=== PATIENT | male | born 1960 | race African-American/Black ===

== ENCOUNTER 2018-10-28 07:59 | Emergency (ER) | payer BC ==
[2018-10-28 08:12] VITALS: BP 154/94; PULSE 62; TEMP 97.9; BMI 25.1
[2018-10-28] MEDS ORDERED: FLUORESCEIN NA 1 EA STRIP OS ONE (08:16)
[2018-10-28] MEDS ORDERED: TETRACAINE 0.5% HCL 0.6ML DROPPER.BOTTLE OS ONE (08:16)
--- NOTE | 2018-10-28 08:35 | PDOC ---
Attending Attestation - Resident Resident Name: Coy Wong - ED Attending Attestation I have performed the following: I have examined & evaluated the patient, The case was reviewed & discussed with the resident, I agree w/resident's findings & plan, Exceptions are as noted - HPI HPI: 10/28/18 08:32 57 M with h/o HTN presenting to ED with pain and swelling above L eye after falling 2 days ago. Pt states that he tripped and hit his head against the corner of a chair. Pt denies LOC. Initially had pain above his L eye where he was injured, but since then the pain has subsided. Now pt only complains of swelling and bruising above L eye. Denies any VÁZQUEZ/N/V. Denies neck pain. Denies blurry vision. Denies double vision. Pt takes aspirin 81mg occasionally but not daily. Denies any other AC. - Physicial Exam PE: 10/28/18 08:34 GENERAL: Awake, alert, and fully oriented, in no acute distress. HEAD: + hematoma to lateral L eyebrow, No other signs of trauma EYES: PERRLA, EOMI, sclera anicteric, conjunctiva clear ENT: Auricles normal inspection, hearing grossly normal, nares patent, oropharynx clear without exudates. Moist mucosa NECK: Nontender, no stepoffs, Normal ROM, supple, no lymphadenopathy, JVD, or masses LUNGS: Breath sounds equal, clear to auscultation bilaterally. No wheezes, and no crackles HEART: Regular rate and rhythm, normal S1 and S2, no murmurs, rubs or gallops ABDOMEN: Soft, nontender, normoactive bowel sounds. No guarding, no rebound. No masses EXTREMITIES: Normal range of motion, no edema. No clubbing or cyanosis. No cords, erythema, or tenderness NEUROLOGICAL: Cranial nerves II through XII intact. 5/5 strength and sensation in all extremities, Normal speech, normal gait, normal cerebellar function SKIN: Warm, Dry, normal turgor, no rashes or lesions noted. - Medical Decision Making 10/28/18 08:34 57 M with small hematoma to L eyebrow after falling 48 hours ago. Pt with no other signs of trauma. No VÁZQUEZ/N/V to suggest serious intracranial injury. No indication for CT by monegasque head CT rules. - Pt counseled on concerning symptoms Pt is well appearing, with normal vitals. Clinically stable for DC at this time. I discussed the physical exam findings, ancillary test results and final diagnoses with the patient. I answered all of the patient's questions. The patient was satisfied with the care received and felt comfortable with the discharge plan and treatment plan. The patient agrees to follow up with the primary care physician within 24-72 hours.
--- NOTE | 2018-10-28 08:39 | PDOC ---
History of Present Illness - General Chief Complaint: Eye Problem Stated Complaint: L EYE INJURY Time Seen by Provider: 10/28/18 08:15 History Source: Patient, Old Records Exam Limitations: No Limitations - History of Present Illness Initial Comments: HPI: 57 y/o male presenting to [facility] ER complaining of pain and swelling to upper outer portion of left orbit. Symptoms started on Sunday when the pt fell into a chair at home. Denies LOC, nausea/vomiting, or amnesia surrounding the event. Denies blurry vision or pain with eye movements. Has tried Advil and cold compress with some relief. No concerning change this morning; just wanted to have it checked. PCP: Hx: - Employee of [employer] Medical Hx: - HTN managed with hydrochlorothiazide Past History - Past Medical History Allergies/Adverse Reactions: Allergies Allergy/AdvReac Type Severity Reaction Status Date / Time No Known Drug Allergies Allergy Verified 10/28/18 08:10 Home Medications: Ambulatory Orders Hydrochlorothiazide [Hctz -] 25 mg PO DAILY 04/24/15 Anemia: No Asthma: No Cancer: No Cardiac Disorders: No CVA: No COPD: No CHF: No Dementia: No Diabetes: No GI Disorders: No Disorders: No HTN: Yes Hypercholesterolemia: No Liver Disease: No Seizures: No Thyroid Disease: No - Surgical History Abdominal Surgery: No Appendectomy: No Cardiac Surgery: No Cholecystectomy: No Lung Surgery: No Neurologic Surgery: No Orthopedic Surgery: Yes (R LEG SURGERY AT AGE 16) - Suicide/Smoking/Psychosocial Hx Smoking History: Never smoked Have you smoked in the past 12 months: No If you are a former smoker, when did you quit?: 2007 Cigars Per Day: 1 Information on smoking cessation initiated: No Hx Alcohol Use: No Drug/Substance Use Hx: No Substance Use Type: Alcohol Hx Substance Use Treatment: Yes (RECOVERING ALCOHOLIC) Review of Systems - Review of Systems Able to Perform ROS?: Yes Comments:: In addition to that documented in the HPI above, the additional ROS was obtained : Constitutional: Denies fevers or chills Head: Per HPI ENMT: Denies sore throat CV: Denies chest pain Resp: Denies SOB GI: Denies vomiting or diarrhea : Denies painful urination MSK: Denies recent trauma Skin: Denies new rashes Neuro: Denies new numbness or tingling or weakness Endocrine: Denies polyuria Heme: Denies bleeding or bruising *Physical Exam - Vital Signs Last Vital Signs Temp Pulse Resp BP Pulse Ox 97.9 F 62 18 154/94 100 10/28/18 08:11 10/28/18 08:11 10/28/18 08:11 10/28/18 08:11 10/28/18 08:11 - Physical Exam Comments: Constitutional: Well-developed, well-nourished adult male in no acute distress or obvious discomfort. Found sitting on edge of hospital bed. Alert and oriented x4. Answered all questions appropriately and completely. Speech was non -labored, non-pressured. Head: Normocephalic. Soft tissue swelling with trace ecchymosis to upper, outer portion of left orbit. Mildly tender to palpation. Eyes: Pupils 3mm and PERRL bilaterally. EOMI; no associated pain. Sclerae white. Conjunctiva moist and not injected. Left Eye: 20/32. Right Eye: 20/25 Ears: Hearing grossly intact. Nose: No nasal discharge. Neck: Supple, trachea is midline. Cardiovascular / Chest: Regular rate and regular rhythm. No murmur, rubs, clicks, or gallops. Peripheral pulses: radial pulses full. Respiratory: Breathing unlabored. Equal chest rise and fall. Clear to auscultation bilaterally. No stridor, no wheezing, no rhonchi. Neuro: Alert and oriented. Moving all four extremities spontaneously. Skin: Warm, dry, and intact. Psych: Affect: appropriate. Mood: normal. Moderate Sedation - Procedure Monitoring Vital Signs: Procedure Monitoring Vital Signs Temperature 97.9 F 10/28/18 08:11 Pulse Rate 62 10/28/18 08:11 Respiratory Rate 18 10/28/18 08:11 Blood Pressure 154/94 10/28/18 08:11 O2 Sat by Pulse Oximetry (%) 100 10/28/18 08:11 Medical Decision Making - Medical Decision Making *Reviewed vital signs, nursing notes, and prior visit documentation (if available). 57 y/o male with small amount of swelling and ecchymosis to left orbit after falling at home two days ago. No visual changes or pain. No concerning changes this morning. Physical exam as described above. Benign. Will encourage continued NSAID/Acetaminophen use PRN. Pt to f/u with PCP as needed. *DC/Admit/Observation/Transfer Diagnosis at time of Disposition: Localized swelling, mass, and lump of head, Contusion of left eyelid and periocular area, initial encounter - Discharge Dispostion Disposition: HOME Condition at time of disposition: Good Decision to Admit order: No - Referrals - Patient Instructions Printed Discharge Instructions: DI for Eye Contusion Additional Instructions: You were seen today for swelling and pain to your left eyebrow. This is likely because of a small soft tissue injury. It is not likely to be life threatening and should go away within the next few days. Continue to use over the counter Advil or Tylenol as needed for the pain. Take as directed on the package insert. Do not exceed the recommended dosage. Follow up with your primary care doctor within the next week or as needed. You will need to call to make an appointment. Go to the nearest emergency department if your condition worsens or you feel like you need additional emergency evaluation. Print Language: THAI - Post Discharge Activity Forms/Work/School Notes: Back to Work
== END 2018-10-28 08:54 | disposition home or self-care (01) ==
LOC: JER 07:59
DX: S00.12XA Contusion of left eyelid and periocular area, initial encounter (principal); S05.12XA Contusion of eyeball and orbital tissues, left eye, initial encounter; W01.190A Fall on same level from slipping, tripping and stumbling with subsequent striking against furniture, initial encounter; Y93.89 Activity, other specified; Y92.038 Other place in apartment as the place of occurrence of the external cause; Y99.8 Other external cause status
CPT/HCPCS: 99281-25

== ENCOUNTER 2020-08-02 09:47 | Inpatient (IN) | payer BC ==
[2020-08-02 09:53] VITALS: BMI 25.8
[2020-08-02] MEDS ORDERED: SODIUM CHLORIDE 1,000 ML IV SCH (10:00)
[2020-08-02 10:40] LABS: BASO % 0.4 % (0-2.0); EOS % 0.7 % (0-4.5); HEMATOCRIT 40.6 % (35.4-49); LYMPH % 20.4 % (8-40); MCH 31.4 pg (25.7-33.7); MCHC 34.6 g/dl (32.0-35.9); MEAN CELL VOLUME 90.8 fl (80-96); MEAN PLT VOLUME 8.3 fl (7.5-11.1); MONO % 8.7 % (3.8-10.2); NEUT % 69.8 % (42.8-82.8); PLATELET COUNT 296 K/MM3 (134-434); RBC 4.47 M/mm3 (4.00-5.60); RDW 13.3 % (11.9-15.9); WHITE BLOOD COUNT 9.9 K/mm3 (4.0-10.0)
[2020-08-02] MEDS ORDERED: ACETAMINOPHEN 325 MG TABLET (FP) PO ONE (10:44)
[2020-08-02 10:50] LABS: INR 1.34 (0.83-1.09); PROTHROMBIN TIME (PATIENT) 16.4 SEC (9.7-13.0)
[2020-08-02 10:52] LABS: ACTIVATED PTT 33.7 SECONDS (25.2-36.5)
[2020-08-02 10:54] LABS: POTASSIUM 3.5 mmol/L (3.5-5.1)
[2020-08-02] MEDS ORDERED: ACETAMINOPHEN 325 MG TABLET (FP) ONE (10:56)
[2020-08-02 10:58] LABS: ALBUMIN 4.2 g/dl (3.4-5.0); BLOOD UREA NITROGEN 17.3 mg/dL (7-18); CALCIUM 9.9 mg/dL (8.5-10.1)
[2020-08-02 11:01] LABS: CHOLESTEROL 170 mg/dL (50-200); CREATININE 1.1 mg/dL (0.55-1.3); TRIGLYCERIDES 54 mg/dL (0-150)
[2020-08-02 11:02] LABS: LDL CHOLESTEROL (ONLY SJRH) 97 mg/dL (5-100)
[2020-08-02 11:03] LABS: BILIRUBIN,TOTAL 0.7 mg/dL (0.2-1); TOT PROT 8.2 g/dl (6.4-8.2)
[2020-08-02 11:04] LABS: HDL CHOLESTEROL 57 mg/dL (40-60)
[2020-08-02] MEDS ORDERED: ATORVASTATIN CA 80 MG TABLET (FP) PO ONE (11:35)
[2020-08-02] MEDS ORDERED: ASPIRIN 325 MG TABLET PO ONE (11:35)
[2020-08-02] MEDS ORDERED: ONDANSETRON 4 MG/2 ML VIAL IVPUSH ONE (11:41)
[2020-08-02] MEDS ORDERED: ASPIRIN 325 MG ENTERIC COATED TABLET (FP) ONE (11:47)
[2020-08-02] MEDS ORDERED: ATORVASTATIN CA 80 MG TABLET (FP) ONE (11:47)
[2020-08-02] MEDS ORDERED: ONDANSETRON 4 MG/2 ML VIAL ONE ×2 (11:47→22:44)
[2020-08-02 12:08] LABS: URINE APPEARANCE CLEAR; URINE BILIRUBIN NEGATIVE (NEGATIVE); URINE COLOR YELLOW; URINE GLUCOSE (UA) NEGATIVE (NEGATIVE); URINE KETONE NEGATIVE (NEGATIVE); URINE LEUK ESTERASE NEGATIVE (NEGATIVE); URINE NITRITE NEGATIVE (NEGATIVE); URINE PROTEIN NEGATIVE (NEGATIVE); URINE UROBILINOGEN 0.2 mg/dL (0.2-1.0)
[2020-08-02] MEDS ORDERED: amLODIPine BESYLATE 10 MG TABLET (FP) PO SCH (14:45)
[2020-08-02] MEDS ORDERED: HYDROCHLOROTHIAZIDE 25 MG TABLET (FP) PO SCH (14:45)
[2020-08-02] MEDS ORDERED: LISINOPRIL 5 MG TABLET ONE (15:16)
[2020-08-02] MEDS: LISINOPRIL 5 MG TABLET PO SCH (15:20)
[2020-08-02] MEDS ORDERED: DONEPEZIL HCL 5 MG TABLET (FP) PO SCH (22:00)
[2020-08-02] MEDS ORDERED: ONDANSETRON 4 MG/2 ML VIAL IVPB ONE (22:41)
[2020-08-02] MEDS ORDERED: ONDANSETRON 4 MG/2 ML VIAL IVPUSH PRN (23:59)
[2020-08-03] MEDS ORDERED: DONEPEZIL HCL 5 MG TABLET (FP) PO SCH ×2 (03:32→03:45)
[2020-08-03] MEDS ORDERED: DONEPEZIL HCL 5 MG TABLET (FP) PO ONE (03:32)
[2020-08-03 07:06] LABS: INR 1.51 (0.83-1.09); PROTHROMBIN TIME (PATIENT) 18.3 SEC (9.7-13.0)
[2020-08-03 07:07] LABS: BASO % 0.3 % (0-2.0); EOS % 0.6 % (0-4.5); HEMATOCRIT 37.6 % (35.4-49); HEMOGLOBIN 12.8 GM/dL (11.7-16.9); LYMPH % 20.5 % (8-40); MCH 30.8 pg (25.7-33.7); MCHC 34.2 g/dl (32.0-35.9); MEAN CELL VOLUME 90.2 fl (80-96); MEAN PLT VOLUME 8.5 fl (7.5-11.1); MONO % 10.1 % (3.8-10.2); NEUT % 68.5 % (42.8-82.8); PLATELET COUNT 277 K/MM3 (134-434); RBC 4.16 M/mm3 (4.00-5.60); RDW 13.3 % (11.9-15.9); WHITE BLOOD COUNT 12.2 K/mm3 (4.0-10.0)
[2020-08-03 07:23] LABS: POTASSIUM 3.2 mmol/L (3.5-5.1)
[2020-08-03 07:39] LABS: MAGNESIUM 2.1 mg/dL (1.8-2.4)
[2020-08-03 07:42] LABS: TOT PROT 7.3 g/dl (6.4-8.2)
[2020-08-03 07:43] LABS: CALCIUM 9.4 mg/dL (8.5-10.1)
[2020-08-03 07:44] LABS: ALBUMIN 3.6 g/dl (3.4-5.0); BLOOD UREA NITROGEN 12.9 mg/dL (7-18)
[2020-08-03 07:46] LABS: BILIRUBIN,TOTAL 0.7 mg/dL (0.2-1)
[2020-08-03 07:48] LABS: CREATININE 0.9 mg/dL (0.55-1.3)
[2020-08-03] MEDS ORDERED: POTASSIUM CHLORIDE TABS 20 MEQ TABLET.ER (FP) PO ONE (07:52)
[2020-08-03] MEDS ORDERED: LORazepam 2 MG/ML SDV VIAL IVPUSH PRN ×2 (09:00→10:52)
[2020-08-03] MEDS: ASPIRIN COATED 81 MG TABLET.EC PO SCH (09:33)
[2020-08-03] MEDS: LISINOPRIL 5 MG TABLET PO SCH (09:33)
[2020-08-03] MEDS: amLODIPine BESYLATE 10 MG TABLET (FP) PO SCH (09:33)
[2020-08-03] MEDS: PANTOPRAZOLE 40 MG TABLET PO SCH (09:33)
[2020-08-03] MEDS ORDERED: HYDROCHLOROTHIAZIDE 25 MG TABLET (FP) PO SCH (10:00)
[2020-08-03] MEDS: KCL 10 MEQ IVPB 10 MEQ/100 ML INFUS.BAG IVPB SCH (10:44)
[2020-08-03] MEDS: DONEPEZIL HCL 10 MG TABLET (FP) PO SCH ×2 (20:44→21:04)
[2020-08-03] MEDS: HEPARIN NA (PORCINE) 5,000 UNITS/ML 1ML VIAL SQ SCH ×2 (20:44→21:04)
[2020-08-03] MEDS: ATORVASTATIN CA 80 MG TABLET (FP) PO SCH ×2 (20:44→21:05)
[2020-08-04] MEDS: HEPARIN NA (PORCINE) 5,000 UNITS/ML 1ML VIAL SQ SCH (07:01)
[2020-08-04 07:09] LABS: HEMATOCRIT 38.7 % (35.4-49); HEMOGLOBIN 13.3 GM/dL (11.7-16.9); MCH 31.5 pg (25.7-33.7); MCHC 34.4 g/dl (32.0-35.9); MEAN CELL VOLUME 91.5 fl (80-96); MEAN PLT VOLUME 8.2 fl (7.5-11.1); PLATELET COUNT 273 K/MM3 (134-434); RBC 4.23 M/mm3 (4.00-5.60); RDW 13.4 % (11.9-15.9); WHITE BLOOD COUNT 9.7 K/mm3 (4.0-10.0)
[2020-08-04 07:20] LABS: POTASSIUM 3.7 mmol/L (3.5-5.1)
[2020-08-04 07:26] LABS: ALBUMIN 3.6 g/dl (3.4-5.0); BLOOD UREA NITROGEN 15.9 mg/dL (7-18); CALCIUM 9.3 mg/dL (8.5-10.1)
[2020-08-04 07:29] LABS: CREATININE 1.1 mg/dL (0.55-1.3)
[2020-08-04 07:31] LABS: BILIRUBIN,TOTAL 0.8 mg/dL (0.2-1); TOT PROT 7.1 g/dl (6.4-8.2)
[2020-08-04] MEDS: LISINOPRIL 5 MG TABLET PO SCH (10:00)
[2020-08-04] MEDS: ASPIRIN COATED 81 MG TABLET.EC PO SCH (10:01)
[2020-08-04] MEDS: PANTOPRAZOLE 40 MG TABLET PO SCH (10:01)
[2020-08-04] MEDS: amLODIPine BESYLATE 10 MG TABLET (FP) PO SCH (10:01)
[2020-08-04 11:40] VITALS: BP 129/72; PULSE 70; TEMP 97.8
== END 2020-08-04 12:27 | disposition home or self-care (01) | DRG 305 ==
LOC: JER 09:47 → JERBED 13:35 → J4W 23:51
PROVIDERS: ATTEND Internal Medicine
DX: I16.0 Hypertensive urgency (principal); E78.5 Hyperlipidemia, unspecified; R29.810 Facial weakness; G31.84 Mild cognitive impairment of uncertain or unknown etiology
CPT/HCPCS: 36415; 70450-TC; 70551-TC; 80053; 80061; 81003; 82550; 82553; 82607; 82746; 83036; 83721; 83735; 84100; 84425; 84484; 85025; 85027; 85610; 85730; 86780; 86850; 86900; 86901; 93005; 93010; 93880-TC; 99285-25; C9803; J1644; U0003

== ENCOUNTER 2021-06-13 00:26 | Observation (INO) | payer BC ==
[2021-06-13] MEDS ORDERED: ACETAMINOPHEN 325 MG TABLET (FP) PO ONE (00:58)
[2021-06-13] MEDS ORDERED: SODIUM CHLORIDE 0.9% 500 ML INFUS.BAG IV ONE (00:59)
[2021-06-13] MEDS ORDERED: ACETAMINOPHEN 325 MG TABLET (FP) ONE (01:37)
[2021-06-13 01:43] LABS: BASO % 1.1 % (0-2.0); HEMOGLOBIN 12.9 GM/dL (11.7-16.9); LYMPH % 20.9 % (8-40); MEAN CELL VOLUME 91.5 fl (80-96); MEAN PLT VOLUME 8.3 fl (7.5-11.1); MONO % 10.2 % (3.8-10.2); NEUT % 64.8 % (42.8-82.8); PLATELET COUNT 257 10^3/uL (134-434); RBC 4.04 M/mm3 (4.00-5.60); RDW 13.5 % (11.9-15.9); WHITE BLOOD COUNT 10.2 K/mm3 (4.0-10.0)
[2021-06-13 02:01] LABS: ALBUMIN 3.8 g/dl (3.4-5.0); BLOOD UREA NITROGEN 15.6 mg/dL (7-18); CALCIUM 9.1 mg/dL (8.5-10.1)
[2021-06-13 02:06] LABS: BILIRUBIN,TOTAL 0.5 mg/dL (0.2-1); TOT PROT 7.6 g/dl (6.4-8.2)
[2021-06-13] MEDS ORDERED: ASPIRIN 81 MG CHEWABLE TABLETS PO ONE (02:20)
[2021-06-13] MEDS ORDERED: ASPIRIN 81 MG CHEWABLE TABLETS ONE (03:06)
[2021-06-13] MEDS ORDERED: CLOPIDOGREL BISULFATE 300 MG TABLET PO ONE (04:12)
[2021-06-13] MEDS ORDERED: ATORVASTATIN CA 40 MG TABLET (FP) PO SCH ×2 (04:45→22:00)
[2021-06-13 05:13] LABS: CALCIUM 8.7 mg/dL (8.5-10.1)
[2021-06-13 05:14] LABS: BLOOD UREA NITROGEN 12.9 mg/dL (7-18); MAGNESIUM 2.2 mg/dL (1.8-2.4)
[2021-06-13 05:17] LABS: CREATININE 0.9 mg/dL (0.55-1.3)
[2021-06-13] MEDS ORDERED: amLODIPine BESYLATE 5 MG TABLET (FP) ONE (06:29)
[2021-06-13] MEDS ORDERED: CLOPIDOGREL BISULFATE 300 MG TABLET ONE (06:30)
[2021-06-13] MEDS ORDERED: ATORVASTATIN CA 40 MG TABLET (FP) ONE (06:30)
[2021-06-13] MEDS: amLODIPine BESYLATE 10 MG TABLET (FP) PO SCH ×2 (06:41→21:31)
[2021-06-13 08:18] LABS: HEMATOCRIT 39.5 % (35.4-49); HEMOGLOBIN 13.5 GM/dL (11.7-16.9); MCH 31.8 pg (25.7-33.7); MCHC 34.3 g/dl (32.0-35.9); MEAN CELL VOLUME 92.8 fl (80-96); MEAN PLT VOLUME 8.3 fl (7.5-11.1); PLATELET COUNT 265 10^3/uL (134-434); RBC 4.26 M/mm3 (4.00-5.60); RDW 13.5 % (11.9-15.9); WHITE BLOOD COUNT 8.8 K/mm3 (4.0-10.0)
[2021-06-13 08:33] LABS: CALCIUM 9.6 mg/dL (8.5-10.1)
[2021-06-13 08:34] LABS: ALBUMIN 3.8 g/dl (3.4-5.0); BLOOD UREA NITROGEN 11.9 mg/dL (7-18)
[2021-06-13] MEDS ORDERED: METOPROLOL TARTRATE 50 MG TABLET (FP) ONE (08:34)
[2021-06-13] MEDS ORDERED: ENOXAPARIN NA (PORCINE) 100 MG/1 ML DISP.SYRIN SQ ONE (08:35)
[2021-06-13] MEDS ORDERED: LISINOPRIL 5 MG TABLET ONE (08:35)
[2021-06-13 08:37] LABS: PHOSPHOROUS 3.4 mg/dL (2.5-4.9)
[2021-06-13 08:39] LABS: BILIRUBIN,TOTAL 0.8 mg/dL (0.2-1); CHOLESTEROL 106 mg/dL (50-200); TOT PROT 7.9 g/dl (6.4-8.2); TRIGLYCERIDES 54 mg/dL (0-150)
[2021-06-13 08:40] LABS: LDL CHOLESTEROL (ONLY SJRH) 43 mg/dL (5-100)
[2021-06-13 08:42] LABS: HDL CHOLESTEROL 58 mg/dL (40-60)
[2021-06-13 08:48] LABS: MAGNESIUM 2.3 mg/dL (1.8-2.4)
[2021-06-13] MEDS: METOPROLOL TARTRATE 50 MG TABLET (FP) PO SCH ×2 (09:18→21:30)
[2021-06-13] MEDS: ENOXAPARIN NA (PORCINE) 100 MG/1 ML DISP.SYRIN SQ SCH ×2 (09:18→21:32)
[2021-06-13] MEDS: LISINOPRIL 5 MG TABLET PO SCH (09:19)
[2021-06-13] MEDS: MEMANTINE HCL 10 MG TABLET (FP) PO SCH ×2 (09:19→21:30)
[2021-06-13] MEDS ORDERED: CLOPIDOGREL BISULFATE 75 MG TABLET (FP) PO SCH (10:00)
[2021-06-13] MEDS ORDERED: ASPIRIN COATED 81 MG TABLET.EC PO SCH (10:00)
[2021-06-13 17:16] VITALS: BMI 35.4
[2021-06-13] MEDS ORDERED: QUEtiapine FUMARATE 25 MG TABLET PO SCH (22:00)
[2021-06-13] MEDS ORDERED: DONEPEZIL HCL 10 MG TABLET (FP) PO SCH (22:00)
[2021-06-14 06:56] LABS: BASO % 0.8 % (0-2.0); EOS % 2.8 % (0-4.5); HEMATOCRIT 38.1 % (35.4-49); HEMOGLOBIN 13.6 GM/dL (11.7-16.9); LYMPH % 27.2 % (8-40); MCH 32.4 pg (25.7-33.7); MCHC 35.8 g/dl (32.0-35.9); MEAN CELL VOLUME 90.5 fl (80-96); MEAN PLT VOLUME 8.3 fl (7.5-11.1); MONO % 9.7 % (3.8-10.2); NEUT % 59.5 % (42.8-82.8); PLATELET COUNT 265 10^3/uL (134-434); RBC 4.21 M/mm3 (4.00-5.60); RDW 13.2 % (11.9-15.9); WHITE BLOOD COUNT 9.3 K/mm3 (4.0-10.0)
[2021-06-14 07:15] LABS: ALBUMIN 3.8 g/dl (3.4-5.0); BLOOD UREA NITROGEN 13.4 mg/dL (7-18); CALCIUM 9.2 mg/dL (8.5-10.1)
[2021-06-14 07:16] LABS: MAGNESIUM 2.2 mg/dL (1.8-2.4)
[2021-06-14 07:18] LABS: PHOSPHOROUS 3.4 mg/dL (2.5-4.9)
[2021-06-14 07:20] LABS: BILIRUBIN,TOTAL 0.9 mg/dL (0.2-1); TOT PROT 7.3 g/dl (6.4-8.2)
[2021-06-14] MEDS: LISINOPRIL 5 MG TABLET PO SCH ×2 (08:02→13:23)
[2021-06-14] MEDS ORDERED: REGADENOSON 0.4 MG/5 ML PRE-FILLED SYRINGE IVPUSH ONE ×3 (09:24→11:31)
[2021-06-14] MEDS ORDERED: CLOPIDOGREL BISULFATE 75 MG TABLET (FP) PO SCH (10:00)
[2021-06-14] MEDS ORDERED: PANTOPRAZOLE SODIUM 40 MG VIAL IVPUSH SCH (10:00)
[2021-06-14] MEDS ORDERED: ASPIRIN COATED 81 MG TABLET.EC PO SCH (10:00)
[2021-06-14] MEDS: ENOXAPARIN NA (PORCINE) 100 MG/1 ML DISP.SYRIN SQ SCH (10:35)
[2021-06-14] MEDS: METOPROLOL TARTRATE 50 MG TABLET (FP) PO SCH (13:12)
[2021-06-14] MEDS: MEMANTINE HCL 10 MG TABLET (FP) PO SCH (13:12)
[2021-06-14 18:16] VITALS: BP 144/75; PULSE 65; TEMP 98
== END 2021-06-14 17:50 | disposition home or self-care (01) ==
LOC: JER 00:26 → JERBED 02:18 → J4S 12:09 → UNDODISOB 18:59
PROVIDERS: ATTEND Internal Medicine
PROC: 3E023GC Introduction of Other Therapeutic Substance into Muscle, Percutaneous Approach (ICD-10-PCS; principal; 2021-06-13)
PROC: 3E033GC Introduction of Other Therapeutic Substance into Peripheral Vein, Percutaneous Approach (ICD-10-PCS; 2021-06-13)
PROC: 3E0337Z Introduction of Electrolytic and Water Balance Substance into Peripheral Vein, Percutaneous Approach (ICD-10-PCS; 2021-06-13)
DX: R07.9 Chest pain, unspecified (principal); I10 Essential (primary) hypertension; E78.5 Hyperlipidemia, unspecified; Z87.891 Personal history of nicotine dependence; E66.9 Obesity, unspecified; Z68.35 Body mass index [BMI] 35.0-35.9, adult; R79.89 Other specified abnormal findings of blood chemistry; Z29.9 Encounter for prophylactic measures, unspecified
CPT/HCPCS: 36415; 71046-TC-FY; 78452-TC; 80048; 80053; 80061; 82550; 82553; 83036; 83735; 84100; 84484; 85025; 85027; 93005; 93010; 93017; 93306-TC; 96372; 96374; 96375; 99285-25; A9502; C9803; G0378; J2785; U0003; U0005

== ENCOUNTER 2021-06-27 07:00 | Emergency (ER) | payer BC ==
[2021-06-27 07:05] VITALS: TEMP 98.2; BMI 27.3
[2021-06-27] MEDS ORDERED: predniSONE 20 MG TABLET (UD) PO ONE (07:37)
[2021-06-27] MEDS ORDERED: FAMOTIDINE 20 MG TABLET PO ONE (07:37)
[2021-06-27] MEDS ORDERED: LORATADINE 10 MG TABLET PO ONE (07:45)
[2021-06-27] MEDS ORDERED: predniSONE 20 MG TABLET (UD) ONE (08:19)
[2021-06-27] MEDS ORDERED: LORATADINE 10 MG TABLET ONE (08:19)
[2021-06-27] MEDS ORDERED: diphenhydrAMINE HCL 50 MG CAPSULE PO ONE (09:05)
[2021-06-27] MEDS ORDERED: diphenhydrAMINE HCL 25 MG CAPSULE (FP) PO ONE (09:08)
[2021-06-27 09:33] VITALS: BP 121/90; PULSE 71
== END 2021-06-27 09:33 | disposition home or self-care (01) ==
LOC: JER 07:00
DX: T78.40XA Allergy, unspecified, initial encounter (principal)
CPT/HCPCS: 99283-25